=== PATIENT | male | born 1970 | race Caucasian/White ===

== ENCOUNTER 2024-04-14 20:54 | Emergency (ER) | payer OTHER ==
[~2024-04-14] VITALS: Ht 182.9 cm; Wt 88.0 kg
[~2024-04-14 20:54] MED LIST: AMOXICILLIN/CL875 MG PO; AUGMENTIN875TAB OR; MEDDOSEPAK PO
[2024-04-14] MEDS ORDERED: LIDOcaine HCl 1% (Local Anesth.) 20 ML VIAL STI STA (21:42)
[2024-04-14] MEDS ORDERED: ACETAMINOPHEN 500 MG TAB PO ONE (21:45)
[2024-04-14] MEDS ORDERED: POVIDONE IODINE 0.5 OZ/BTL TOP ONE (21:45)
[2024-04-14] MEDS ORDERED: IBUPROFEN 800 MG/TAB PO ONE (21:45)
[2024-04-14] MEDS ORDERED: Diph, Acellular Pertussis, Tet 0.5 ML/VIAL (Tdap) SDV IM ONE (21:45)
[2024-04-14] MEDS ORDERED: SULFAMETHOXAZOLE W/TRIMETHOPRI 1 COMBO TAB PO ONE (22:55)
[2024-04-14] MEDS ORDERED: BACTRIM DS1 TAB PO (23:09)
[2024-04-14 23:34] VITALS: BP 158/94
== END 2024-04-14 23:34 | disposition home or self-care (01) | DRG 563 ==
LOC: ED 20:54
PROC: 0HQGXZZ Repair Left Hand Skin, External Approach (ICD-10-PCS; principal; 2024-04-14)
DX: S62.635B Displaced fracture of distal phalanx of left ring finger, initial encounter for open fracture (principal); W23.0XXA Caught, crushed, jammed, or pinched between moving objects, initial encounter; Y93.B3 Activity, free weights; Y92.009 Unspecified place in unspecified non-institutional (private) residence as the place of occurrence of the external cause